=== PATIENT | female | born 1955 | race Caucasian/White ===

== ENCOUNTER 2022-12-28 08:10 | Day surgery (SDC) | payer MEDICARE ==
[~2022-12-28] VITALS: Ht 160 cm; Wt 119.8 kg
[~2022-12-28 08:10] MED LIST: PERCOCET 325 MG1 TA2 PO; VANTIN 200200 MG/TAB PO; ZOFRAN ODT4 MG PO
[2022-12-28 08:37] VITALS: BP 138/109; PULSE 91; TEMP 98.1
[2022-12-28 08:42] LABS: BASO % 0.4 % (0.0-2.0); EOS # 0.2 K/mm3 (0.0-0.7); EOS % 1.9 % (0.0-4.0); GRAN # 4.8 K/mm3 (1.4-6.5); GRAN % 60.4 % (42.2-75.2); HEMATOCRIT 44.5 % (37.0-47.0); HEMOGLOBIN 14.2 g/dl (12.5-16.0); LYMPH # 2.5 K/mm3 (1.2-3.4); LYMPH % 31.7 % (20.0-51.0); MEAN CELL VOLUME 87 fl (80.0-100.0); MEAN CORPUSCULAR HEMOGLOBIN 28 pg (27-31); MEAN CORPUSCULAR HGB CONC 32 g/dl (33.0-37.0); MEAN PLATELET VOLUME 9.7 fl (7.4-10.4); MONO # 0.4 K/mm3 (0.1-0.6); MONO % 5.5 % (1.7-9.3); PLATELET COUNT 287 K/mm3 (130-400); RED BLOOD COUNT 5.14 M/mm3 (4.10-5.30); REDCELL DISTRIBUTION WIDTH-CV 14.8 % (11.5-14.5)
[2022-12-28] MEDS ORDERED: LIPITOR 10MG10 MG PO (08:43)
[2022-12-28] MEDS ORDERED: COZAAR 25MG25 MG/TAB PO (08:43)
[2022-12-28] MEDS ORDERED: PRILOSEC 20MG20 MG PO (08:44)
[2022-12-28] MEDS ORDERED: ELIQUIS 5MG PO (08:44)
[2022-12-28] MEDS ORDERED: TOPROL XL 25MG25 MG PO (08:44)
[2022-12-28] MEDS ORDERED: WELLBUTRIN 75MG75 MG PO (08:45)
[2022-12-28] MEDS ORDERED: REVIA 50MG TABL50 MG PO (08:45)
[2022-12-28] MEDS ORDERED: NATURAL IRON65 MG PO (08:47)
[2022-12-28] MEDS ORDERED: VITAMIN D362.5 MC1 PO (08:48)
[2022-12-28] MEDS ORDERED: VITAMINC1000TA PO (08:48)
[2022-12-28] MEDS ORDERED: B COMPLEX #11 TA1 PO (08:48)
[2022-12-28] MEDS ORDERED: OSCAL 500 TAB500 MG PO (08:49)
[2022-12-28] MEDS ORDERED: CALCIUM-MAGNES1 EAC1 PO (08:50)
[2022-12-28] MEDS ORDERED: CENTRUM SILVER1 CTB PO (08:50)
[2022-12-28] MEDS ORDERED: TYLENOL 8 HR PO (08:51)
[2022-12-28] MEDS ORDERED: TYLENOL 325MG325 MG PO (08:51)
[2022-12-28 08:55] LABS: CALCIUM 9.4 mg/dL (8.4-10.2); CREATININE, serum 0.78 mg/dL (0.57-1.11); MAGNESIUM 2.2 mg/dL (1.6-2.6); POTASSIUM 4.4 mmol/L (3.5-4.5)
[2022-12-28 09:15] LABS: THYROID STIMULATING HORMONE 2.178 uIU/mL (0.350-4.940)
[2022-12-28 09:32] LABS: INR 1.3 (0.8-3.0); PROTHROMBIN TIME 15.5 SECONDS (9.7-12.8)
[2022-12-28 09:34] LABS: PARTIAL THROMBOPLASTIN TIME 39.5 SECONDS (26.0-37.0)
[2022-12-28] MEDS ORDERED: CEPHALEXIN500 M1 PO (10:12)
[2022-12-28] MEDS ORDERED: MULTAQ400 MG PO (10:13)
[2022-12-28 10:20] VITALS: BP 104/66; PULSE 65
[2022-12-28 10:30] VITALS: BP 98/68; PULSE 66
[2022-12-28 10:45] VITALS: BP 113/73; PULSE 71
[2022-12-28 11:00] VITALS: BP 109/77; PULSE 62
--- NOTE | 2022-12-28 11:11 | NUR ---
DC instructions reviewed with pt and daughter. Both express understanding. Pt has tolerated water, swallowing without difficulty. Has denied desire for food. She is steady on feet in room. IV DC'd, site wrapped with coban. Pt is assisted out by wheelchair to daughter's car with belongings.
== END 2022-12-28 11:11 | disposition home or self-care (01) ==
LOC: COL.CAR 08:10
PROVIDERS: Internal Medicine Cardiovascular Disease
DX: I48.91 Unspecified atrial fibrillation (principal); I08.1 Rheumatic disorders of both mitral and tricuspid valves; I10 Essential (primary) hypertension; E66.01 Morbid (severe) obesity due to excess calories; Z86.73 Personal history of transient ischemic attack (TIA), and cerebral infarction without residual deficits; Z68.41 Body mass index [BMI] 40.0-44.9, adult; Z98.84 Bariatric surgery status; Z79.899 Other long term (current) drug therapy; Z79.01 Long term (current) use of anticoagulants
CPT/HCPCS: J2704

== ENCOUNTER 2023-02-04 06:52 | Inpatient (IN) | payer MEDICARE ==
[~2023-02-04] VITALS: Ht 160 cm; Wt 119.3 kg
[~2023-02-04 06:52] MED LIST changes: +B COMPLEX #11 TA1 PO; +CALCIUM-MAGNES1 EAC1 PO; +CENTRUM SILVER1 CTB PO; +CEPHALEXIN500 M1 PO; +COZAAR 25MG25 MG/TAB PO; +ELIQUIS 5MG PO; +LIPITOR 10MG10 MG PO; +MULTAQ400 MG PO; +NATURAL IRON65 MG PO; +OSCAL 500 TAB500 MG PO; +PRILOSEC 20MG20 MG PO; +REVIA 50MG TABL50 MG PO; +TOPROL XL 25MG25 MG PO; +TYLENOL 325MG325 MG PO; +TYLENOL 8 HR PO; +VITAMIN D362.5 MC1 PO; +VITAMINC1000TA PO; +WELLBUTRIN 75MG75 MG PO
[2023-02-17 08:53] VITALS: BP 119/84; PULSE 92; TEMP 97.6
[2023-02-17 11:50] LABS: BASO % 0.4 % (0.0-2.0); EOS # 0.1 K/mm3 (0.0-0.7); GRAN % 60.6 % (42.2-75.2); HEMATOCRIT 41.2 % (37.0-47.0); HEMOGLOBIN 13.2 g/dl (12.5-16.0); LYMPH # 2.1 K/mm3 (1.2-3.4); LYMPH % 31.5 % (20.0-51.0); MEAN CELL VOLUME 86 fl (80.0-100.0); MEAN CORPUSCULAR HEMOGLOBIN 27 pg (27-31); MEAN CORPUSCULAR HGB CONC 32 g/dl (33.0-37.0); MEAN PLATELET VOLUME 9.6 fl (7.4-10.4); MONO # 0.4 K/mm3 (0.1-0.6); MONO % 6.4 % (1.7-9.3); PLATELET COUNT 258 K/mm3 (130-400); RED BLOOD COUNT 4.82 M/mm3 (4.10-5.30); REDCELL DISTRIBUTION WIDTH-CV 14.5 % (11.5-14.5)
[2023-02-17 11:55] LABS: INR 1.4 (0.8-3.0); PROTHROMBIN TIME 16.4 SECONDS (9.7-12.8)
[2023-02-17 12:00] VITALS: BP 117/81; PULSE 75; TEMP 97.5
[2023-02-17 12:05] LABS: ALBUMIN 3.7 gm/dL (3.4-4.8); BILIRUBIN,TOTAL 0.9 mg/dL (0.2-1.2); CALCIUM 8.9 mg/dL (8.4-10.2); CREATININE, serum 0.75 mg/dL (0.57-1.11); MAGNESIUM 2.1 mg/dL (1.6-2.6); POTASSIUM 4.3 mmol/L (3.5-4.5); TOTAL PROTEIN 6.2 gm/dL (6.2-8.1)
[2023-02-17 16:00] VITALS: BP 101/71; PULSE 82; TEMP 97.5
--- NOTE | 2023-02-17 18:10 | NUR ---
Pt arrived to room 352 at approximately 0845. Tele reading AFIB. IV site started to . VSS. Denies pain or needs.
[2023-02-17 19:31] VITALS: BP 109/80; PULSE 82; TEMP 97.8
[2023-02-17 23:24] VITALS: BP 112/78; PULSE 80; TEMP 97.8
[2023-02-18] VITALS (7 sets, daily range): BP systolic 83–148; BP diastolic 54–87; PULSE 70–98; TEMP 97.6–98.3
[2023-02-18 06:53] LABS: BASO % 0.3 % (0.0-2.0); EOS # 0.1 K/mm3 (0.0-0.7); GRAN % 58.2 % (42.2-75.2); HEMATOCRIT 42.1 % (37.0-47.0); HEMOGLOBIN 14.4 g/dl (12.5-16.0); LYMPH # 2.2 K/mm3 (1.2-3.4); LYMPH % 31.7 % (20.0-51.0); MEAN CELL VOLUME 82 fl (80.0-100.0); MEAN CORPUSCULAR HEMOGLOBIN 28 pg (27-31); MEAN CORPUSCULAR HGB CONC 34 g/dl (33.0-37.0); MEAN PLATELET VOLUME 9.8 fl (7.4-10.4); MONO # 0.5 K/mm3 (0.1-0.6); MONO % 7.7 % (1.7-9.3); PLATELET COUNT 215 K/mm3 (130-400); RED BLOOD COUNT 5.12 M/mm3 (4.10-5.30); REDCELL DISTRIBUTION WIDTH-CV 14.3 % (11.5-14.5)
[2023-02-18 07:11] LABS: ALBUMIN 3.8 gm/dL (3.4-4.8); CALCIUM 9.3 mg/dL (8.4-10.2); CREATININE, serum 0.76 mg/dL (0.57-1.11); MAGNESIUM 2.1 mg/dL (1.6-2.6); POTASSIUM 4.4 mmol/L (3.5-4.5); TOTAL PROTEIN 6.6 gm/dL (6.2-8.1)
--- NOTE | 2023-02-18 07:42 | NUR ---
0700 REPORT RECIEVED FROM THE PRIOR SHIFT.ASSESSMENT COMPLETED BY THIS [facility] STUDENT.PATIENT WAS SITTING UP IN HER RECLINER WATCHING TELELVISION.PATIENT HAS NO COMPLAINTS OF PAIN AT THIS TIME OR SHORTNESS OF BREATH.PATIENT HAS TELEMETRY PLACED AND A 22G IN HER RIGHT HAND. BED REMAINS IN LOWEST POSITION AND CALL LIGHT WITHIN REACH.
--- NOTE | 2023-02-18 09:46 | NUR ---
SW met with patient to complete intake and discuss discharge plan. Patient reports that she lives in [place] with her daughter Milena ([phone]) and her son in law Marlon ([phone]). She is fully independent with her ADL's and IADL's. She has no DME needs to assist with mobility and has no home oxygen needs. PCP is Vivian Phelps and she utilizes [facility]. Patient does not have a DPOA-HC but wishes to create one while here. Form and education provided to the patient. Patient completes form designating Milena and Marlon. This SW and MAYURI Guerra witness form. Signed copy placed in the patients chart. Original and additional copies provided to the patient. Patient is planning on returning home once medically ready. DIscharge plan: Home with family
--- NOTE | 2023-02-18 18:36 | NUR ---
Pt up independently in the room throughout day. Still in afib, rate controlled. IV site to RH without s/s complications. Denies pain or needs throughout day.
--- NOTE | 2023-02-18 23:24 | NUR ---
Call from PCT stating that blood pressure was reading 83/54 on NATHAN with a MAP of 62. Taken this time manually-98/54. Heraclio denies chest pain/lightheadedness/dizziness/nausea. States she had just fallen asleep.
[2023-02-19] VITALS (10 sets, daily range): BP systolic 92–121; BP diastolic 43–75; PULSE 44–130; TEMP 97.5–98
--- NOTE | 2023-02-19 04:50 | NUR ---
Patient had an uneventful night. DId have some lower blood pressures of 90s/60s-asymptomatic. Tele reporting A FIB rate controlled. Has been NPO since 0000 due to plan for cardioversion. Currently on RA. Denies current questions/conerns. Call light in reach. Will monitor.
[2023-02-19 06:50] LABS: BASO % 0.4 % (0.0-2.0); EOS # 0.1 K/mm3 (0.0-0.7); EOS % 1.9 % (0.0-4.0); GRAN # 4.1 K/mm3 (1.4-6.5); GRAN % 58.7 % (42.2-75.2); HEMATOCRIT 42.9 % (37.0-47.0); HEMOGLOBIN 14.1 g/dl (12.5-16.0); LYMPH # 2.2 K/mm3 (1.2-3.4); LYMPH % 31.6 % (20.0-51.0); MEAN CELL VOLUME 85 fl (80.0-100.0); MEAN CORPUSCULAR HEMOGLOBIN 28 pg (27-31); MEAN CORPUSCULAR HGB CONC 33 g/dl (33.0-37.0); MEAN PLATELET VOLUME 9.4 fl (7.4-10.4); MONO # 0.5 K/mm3 (0.1-0.6); MONO % 7.3 % (1.7-9.3); PLATELET COUNT 256 K/mm3 (130-400); RED BLOOD COUNT 5.07 M/mm3 (4.10-5.30); REDCELL DISTRIBUTION WIDTH-CV 14.5 % (11.5-14.5)
[2023-02-19 07:05] LABS: ALBUMIN 3.6 gm/dL (3.4-4.8); BILIRUBIN,TOTAL 0.8 mg/dL (0.2-1.2); CREATININE, serum 0.71 mg/dL (0.57-1.11); POTASSIUM 4.6 mmol/L (3.5-4.5); TOTAL PROTEIN 6.4 gm/dL (6.2-8.1)
--- NOTE | 2023-02-19 07:57 | NUR ---
0730 REPORT RECIEVED FROM THE SHIFT PRIOR. SHIFT ASSESSMENT COMPLETED BY THIS [facility] STUDENT-SEE INTERVENTIONS. PATIENT IS SITTING UP IN RECLINER WITH FEET ELEVATED WATCHING TELEVISION. PATIENT HAS NO COMPLAINTS OF PAIN AT THIS TIME. TELEMETRY PLACED. INT IN RIGHT HAND WITH NO SIGNS OF INFILTRATION OR PHLEBITIS. BED REMAINS IN LOWEST POSITION.CALL LIGHT WITHIN REACH.
--- NOTE | 2023-02-19 09:47 | NUR ---
Initial visit; Patient and her daughter thanked Electronics Installer for looking in on her and offering Spiritual Care. Ro declined stating they have their own pentecostal to which Electronics Installer replied that she was glad to meet them and hopes Ro's health improves.
[2023-02-19] MEDS ORDERED: BETAPACE 80MG80 MG PO (15:20)
--- NOTE | 2023-02-19 17:16 | NUR ---
Shift assessment done this morning. Patient is up on chair this morning. Denies any pain, dizziness, or SOB. Patient off the floor at 1pm for cardioversion and came back at around 1500. Patient is alert and oriented x4. Jimy reported that her IV in her left hand infiltrated with some propofol. They discontinue and use right hand IV. Patient complained that her left hand has some tingling and numbness. Coninued monitoring her, and she doesn't complain tingling and numbness anymore. Patient's HR is in 40s-50s and her ststolic BP is close to 100. Jemima HARRIS notified, and she said it is ok for her to discharge. Discharge order is in place. I will discontinue her IV, review discharge instruction with her, and escort her to her private vehicle.
--- NOTE | 2023-02-19 18:35 | NUR ---
Patient discharged with one tablet of sotalol to go home due to pharmacy being closed at this time. Pharmacist Jemima notified.
== END 2023-02-19 17:52 | disposition home or self-care (01) | DRG 309 ==
LOC: MEDICAL 02-17 06:48
PROVIDERS: ADMIT Internal Medicine Cardiovascular Disease
PROC: 5A2204Z Restoration of Cardiac Rhythm, Single (ICD-10-PCS; principal; 2023-02-19)
DX: I48.0 Paroxysmal atrial fibrillation (principal); Z68.42 Body mass index [BMI] 45.0-49.9, adult; E66.01 Morbid (severe) obesity due to excess calories; I10 Essential (primary) hypertension; Z90.49 Acquired absence of other specified parts of digestive tract; Z98.84 Bariatric surgery status; Z79.01 Long term (current) use of anticoagulants; Z86.73 Personal history of transient ischemic attack (TIA), and cerebral infarction without residual deficits; Z79.899 Other long term (current) drug therapy; Z87.891 Personal history of nicotine dependence; Z23 Encounter for immunization
CPT/HCPCS: J2704; J7120

== ENCOUNTER 2023-09-08 09:30 | Inpatient (IN) | payer MEDICARE ==
[~2023-09-08] VITALS: Ht 160 cm; Wt 126.5 kg
[~2023-09-08 09:30] MED LIST changes: +BETAPACE 80MG80 MG PO
[2023-10-11] VITALS (9 sets, daily range): BP systolic 129–159; BP diastolic 85–94; PULSE 81–107; TEMP 97.4–98.3
[2023-10-11] MEDS ORDERED: COMPLETE SENIOR1 TA1 PO (09:36)
[2023-10-11] MEDS ORDERED: VITAMINC1000TA (09:37)
--- NOTE | 2023-10-11 09:45 | NUR ---
Patient up to the medical unit, direct admission from home. Patient awake, alert and oriented. Denies chest pain, palpitations, or nausea. States she is short of breath at times with exertion. Steady on feet when ambulating in the room. Bed in the lowest position with call light within reach. Denies further needs at this time. Tommy in the room to discuss plan of care with patient, RT called for EKG order.
[2023-10-11 10:43] LABS: CALCIUM 9.1 mg/dL (8.4-10.2); CREATININE, serum 0.72 mg/dL (0.57-1.11); POTASSIUM 4.5 mmol/L (3.5-4.5)
--- NOTE | 2023-10-11 19:05 | NUR ---
Patient doing well throughout the day post first dose of tikosyn. Pt denies any chest pain, palpitations, or dizziness. Sitting in the chair. Call light within reach.
[2023-10-12] VITALS (14 sets, daily range): BP systolic 104–149; BP diastolic 63–98; PULSE 68–136; TEMP 97.3–98
--- NOTE | 2023-10-12 07:39 | NUR ---
Patient awake, alert and oriented. Denies pain, shortness of breath, palpitations, or dizziness. Tele notified that HR was increasing, pt noted to be walking around room getting ready for the day. Denies any symptoms while walking. HR down to 90-100 at rest. Bed in lowest position with call light within reach, denies further needs at this time.
[2023-10-12 08:18] LABS: CALCIUM 8.7 mg/dL (8.4-10.2); CREATININE, serum 0.67 mg/dL (0.57-1.11); MAGNESIUM 2.1 mg/dL (1.6-2.6); POTASSIUM 4.2 mmol/L (3.5-4.5)
--- NOTE | 2023-10-12 08:20 | NUR ---
RT notified that tikosyn was given, EKG ordered for 2 hours post dose.
--- NOTE | 2023-10-12 09:33 | NUR ---
Tommy Dangelo notified of abnormal heart rhythm, HR up to 150s at times with movement, and a recent 7 beat run of V tach. Patient asymptomatic, vital signs taken. Tommy aware, states he will be up shortly to check on patient.
--- NOTE | 2023-10-12 10:01 | NUR ---
Exercise Manager met with patient to discuss discharge planning. Patient lives in [place] with her daughter, Milena (ph#[phone]) and her family including eight grandchildren. Patient sees Vivian Bolton NP for primary care and obtains medications from [facility]. SW inquired about any difficulties affording medications and patient stated she is on a program with Dr. Campa's office to help afford her Eloquis. Patient does not use any DME and is independent with ADLS. Patient advised she has a Living Will and she believes it also gives her daughter, Milena decision making capacity as well. Patient plans to return home at time of discharge. Discharge Plan: Home
--- NOTE | 2023-10-12 12:32 | NUR ---
D: Initial visit: Cutlery Grinder stopped by room on rounds. Pt was resting and content. A: Pt has no needs right now. P: Cutlery Grinder informed pt that if she needed anything to let her nurse know. Cutlery Grinder will follow up as needed.
--- NOTE | 2023-10-12 18:30 | NUR ---
Patient had uneventful day, denying palpitations, chest pain, or shortness of breath throughout the day. environmental monitoring specialist in place. Discussed with patient need to be NPO tonight in preparation for her cardioversion tomorrow, pt verbalizes understanding. Sitting in bed, comfortable. Bed in lowest position with call light within reach.
--- NOTE | 2023-10-12 18:38 | NUR ---
PATIENT RESTING IN BED WITH TV ON WITH NO ACUTE DISTRESS NOTED. PATIENT ON ROOM AIR. TELEMETRY INTACT. BEDSIDE SHIFT REPORT COMPLETED. PATIENT DENIES ANY NEEDS. BED IN LOW POSITION WITH WHEELS LOCKED WITH RAILS UP X2 AND CALL LIGHT WITH REACH.
--- NOTE | 2023-10-12 22:30 | NUR ---
PATIENT RESTING IN BED WITH NO ACUTE DISTRESS NOTED. PATIENT ON ROOM AIR. INT TO LEFT HAND INTACT. TELEMETRY ON. ASSESSMENT AND MEDICATION ADMINISTRATION COMPLETED AT THIS TIME. RESPIRATORY CALL TO INFORM TIME OF ADMINISTRATION OF TIKOSYN. PATIENT DENIES ANY NEEDS AT THIS TIME. BED IN LOW POSITION WITH WHEELS LOCKED WITH RAILS UP X2 AND CALL LIGHT WITHIN REACH.
[2023-10-13] VITALS (17 sets, daily range): BP systolic 101–121; BP diastolic 55–87; PULSE 65–99; TEMP 97.6–98.3
--- NOTE | 2023-10-13 06:30 | NUR ---
PATIENT RESTED AT INTERVALS THROUGHT NIGHT. PATIENT HAS BEEN NPO SINCE MIDNIGHT FOR CARDIOVERSION AND LYNN. PATIENT DENIES ANY NEEDS. BED IN LOW POSITION WTIH WHEELS LOCKED WITH RAILS UP X2 AND CALL LIGHT WITHIN REACH.
[2023-10-13 06:39] LABS: CALCIUM 8.7 mg/dL (8.4-10.2); CREATININE, serum 0.69 mg/dL (0.57-1.11); MAGNESIUM 2.1 mg/dL (1.6-2.6); POTASSIUM 4.2 mmol/L (3.5-4.5)
--- NOTE | 2023-10-13 15:00 | NUR ---
PATIENT IS BACK UP ON THE MEDICAL FLOOR AFTER LYNN/CARDIOVERSION , BACK IN NSR. NOT COMPLAINING OF PAIN. VSS ARE BEING MONITORED CONTINUOUSLY.
--- NOTE | 2023-10-13 21:56 | NUR ---
Patient assessed around 2049. Denies having pain and discomfort. Peripheral INT to left hand. Denies having pain and discomfort. Peripheral INT to left hand. Denies SOB and dyspnea. LS CTA. HRR. Telemetry in place. BSAx4. 1+ edema BLE. Plan to discharge home tomorrow. Voices no questions, needs, or concerns at this time. In bed with call light within reach. RT notified of time of Tikosyn administration for 2 hour post medication EKG.
[2023-10-14 01:41] VITALS: BP_SYST 104
[2023-10-14 04:06] VITALS: BP 100/65; PULSE 69; TEMP 98
[2023-10-14 04:52] VITALS: BP_SYST 100
--- NOTE | 2023-10-14 05:46 | NUR ---
Patient remains in normal sinus rhythm on telemetry. Denies having pain and discomfort. Reports that she slept a little, but not much during the night. Voices no questions, needs, or concerns at this time. In bed with call light within reach.
[2023-10-14 07:04] VITALS: BP 127/84; PULSE 75; TEMP 97.9
[2023-10-14 07:10] LABS: CALCIUM 8.7 mg/dL (8.4-10.2); CREATININE, serum 0.74 mg/dL (0.57-1.11)
[2023-10-14 07:28] VITALS: BP_SYST 127
--- NOTE | 2023-10-14 08:41 | NUR ---
RECEIVED CALL FROM CRITICAL CARE THAT PATIENT HAD ANOTHER RUN OF V-TACH. PATIENT IS RESTING IN BED STABLE. NOTIFIED CARDIOLOGY, AND A BETA ALMA ROSA WAS ADDED TO MED LIST. PATIENT IS STILL SET TO DISCHARGE THIS MORNING.
[2023-10-14] MEDS ORDERED: TOPROL XL 25MG25 MG PO (10:16)
[2023-10-14] MEDS ORDERED: TIKOSYN0.25 MG PO (10:16)
[2023-10-14 10:57] VITALS: BP 134/76; PULSE 69; TEMP 98.3
--- NOTE | 2023-10-14 11:16 | NUR ---
PATIENT RECIEVED DISCHARGE INSTRUCTIONS. ACKNOWLEDGED UNDERSTANDING OF MEDICATIONS AND FOLLOW UP APPOINTMENTS. LEFT HAND IV DISCONTINUED. TELEMETRY DISCONTINUED. PATIENT READY FOR DISCHARGE
--- NOTE | 2023-10-14 11:36 | NUR ---
PATIENT DISCHARGED WIT NURSING STAFF IN WHEELCHAIR WITH DAUGHTER ACCOMPANYING. NO ISSUES.
== END 2023-10-14 11:36 | disposition home or self-care (01) | DRG 309 ==
LOC: MEDICAL 10-04 09:30
PROVIDERS: Nurse Practitioner; ADMIT Internal Medicine Interventional Cardiology
PROC: 5A2204Z Restoration of Cardiac Rhythm, Single (ICD-10-PCS; principal; 2023-10-13)
DX: I48.0 Paroxysmal atrial fibrillation (principal); Z68.42 Body mass index [BMI] 45.0-49.9, adult; I47.20 Ventricular tachycardia, unspecified; E78.5 Hyperlipidemia, unspecified; E66.01 Morbid (severe) obesity due to excess calories; D50.9 Iron deficiency anemia, unspecified; I10 Essential (primary) hypertension; K21.9 Gastro-esophageal reflux disease without esophagitis; Z95.818 Presence of other cardiac implants and grafts; Z23 Encounter for immunization
CPT/HCPCS: J2704